=== PATIENT | male | born 1960 | race Caucasian/White ===

== ENCOUNTER 2016-05-05 16:32 | Emergency (ER) | payer MEDICAID, OTHER ==
[~2016-05-05] VITALS: Ht 175.3 cm; Wt 75.0 kg
[2016-05-05 18:11] LABS: CLARITY URINE CLEAR (CLEAR); COLOR URINE YELLOW (YELLOW); GLUCOSE URINE NEGATIVE (NEGATIVE); KETONES URINE TRACE (NEGATIVE); LEUKOCYTE ESTERASE URINE NEGATIVE (NEGATIVE); NITRITE URINE NEGATIVE (NEGATIVE); OCCULT BLOOD URINE NEGATIVE (NEGATIVE); PH URINE 5.5 (4.5-8.0); PROTEIN URINE NEGATIVE (NEGATIVE); SPECIFIC GRAVITY URINE 1.008 (1.005-1.030); UROBILINOGEN URINE 0.2 E.U./dL (0.2-1.0)
[2016-05-05 18:21] LABS: *AMPHETAMINES SCREEN URINE NEGATIVE (NEGATIVE); *BARBITURATES SCREEN URINE NEGATIVE (NEGATIVE); *BENZODIAZEPINES SCREEN URINE NEGATIVE (NEGATIVE); *COCAINE SCREEN URINE NEGATIVE (NEGATIVE); CANNABINOID URINE SCREEN PRESUMTIVE POSITIVE (NEGATIVE); ECSTASY MDMA SCREEN URINE NEGATIVE (NEGATIVE); METHADONE URINE SCREEN NEGATIVE (NEGATIVE); OPIATES URINE SCREEN NEGATIVE (NEGATIVE); PHENCYCLIDINE URINE SCREEN NEGATIVE (NEGATIVE)
[2016-05-05 18:35] LABS: BASOPHILS % 0.4 % (0.0-2.0); HEMATOCRIT. 44.9 % (42.0-52.0); HEMOGLOBIN. 14.7 g/dL (14.0-18.0); LYMPHOCYTES % 42.8 % (20.0-50.0); MEAN CORPUSCULAR HEMOGLOBIN 28.8 pg (28.0-32.0); MEAN CORPUSCULAR HGB CONC 32.8 g/dL (31.0-37.0); MEAN CORPUSCULAR VOLUME 87.9 fL (80.0-94.0); MEAN PLATELET VOLUME 9.1 fl (7.4-10.4); MONOCYTES % 6.6 % (2.0-8.0); NEUTROPHILS % 47.2 % (40.0-76.0); PLATELET 232 x1000/uL (130-400); RED CELL DISTRIBUTION WIDTH 16.6 % (11.6-14.6)
[2016-05-05 18:43] LABS: ALBUMIN 4.1 g/dL (3.4-5.0); ANION GAP 14; CALCIUM 8.7 mg/dL (8.5-10.1); CARBON DIOXIDE 28 mEq/L (21-32); CHLORIDE 106 mEq/L (98-107); INDEX HEMOLYSI 1 (1-3); INDEX ICTERIC 1 (1-4); INDEX LIPEMIC 1 (1-3); LIPASE 188 IU/L (73-393); UREA NITROGEN BLOOD 14 mg/dL (7-21)
[2016-05-05] MEDS ORDERED: FOLIC ACID 1 MG, THIAMINE HCL 100 MG, MVI, ADULT NO.1 10 ML in DEXTROSE 5% WATER 1,000 ML IV ONE ×4 (18:45)
[2016-05-05 18:48] LABS: ALANINE AMINOTRANSFERASE 62 IU/L (13-61); eGFR > 60 mL/min (>60)
[2016-05-05 18:59] LABS: ETHANOL BLOOD 396 mg/dL
[2016-05-05] MEDS ORDERED: KETOROLAC 30MG/ML VIAL IV ONE (19:00)
[2016-05-05] MEDS ORDERED: LORAZEPAM 2MG/ML CPJ IV ONE (19:45)
[2016-05-05] MEDS ORDERED: CYCLOBENZAPRINE 10MG TABLET PO ONE (22:00)
[2016-05-05 23:57] VITALS: BP 125/80
== END 2016-05-06 04:48 | disposition home or self-care (01) ==
LOC: ER 16:33
DX: F10.229 Alcohol dependence with intoxication, unspecified (principal); M79.1 Myalgia; F41.9 Anxiety disorder, unspecified
CPT/HCPCS: 36415; 80053; 80305; 81003; 83690; 85025; 96365; 96366; 96375; 99285; G0482; J1885; J2060; J3411; J3490; J7070; Z7610